=== PATIENT | male | born 1980 | race Caucasian/White ===

== ENCOUNTER 2023-02-11 16:09 | Inpatient (IN) ==
--- NOTE | 2023-02-11 16:23 | Emergency Department Note ---
Impression & Plan Alcoholic intoxication, Acute hypokalemia ED Provider Note HISTORY OF PRESENT ILLNESS: Patient is a 42-year-old male presenting with alcohol intoxication. Patient presented to [facility] rehab facility today for alcohol detox but his breathalyzer test result 0.4. Patient reports that he drinks 1/5 of vodka a day for the last 2 months. He states that he drank around 6 AM and finished drinking about 1500. He has no complaints on arrival to the emergency department. He would like to sober up and present to rehab. Denies any history of withdrawal seizures. ROS: as above PHYSICAL EXAM: Constitutional: Patient appears in no acute distress. HENT: Head: Normocephalic and atraumatic. Eyes: EOMI, PERRL Mouth/Throat: Mucous membranes moist. Neck: Trachea midline. Neck supple. Cardiovascular: RRR, No murmurs, rubs or gallops. Intact distal pulses. Pulmonary/Chest: No respiratory distress. Breath sounds clear and equal bilaterally. No wheezes or rales. Abdominal: BS +. Abdomen soft, no tenderness, rebound or guarding. Musculoskeletal: No edema, tenderness or deformity noted. Skin: Warm and dry. No rash, erythema, pallor or cyanosis Neurological: Alert. CN II-XII grossly intact, moving all extremities equally and fully. MDM: - Vitals signs st - History obtained via patient. Patient presents with alcohol intoxication. Patient presented to an outpatient rehab facility earlier today. However, he was found to be too drunk to safely be admitted to the rehab. He was sent to the ER for further evaluation. Patient reports he drinks 1/5 of vodka a day. Denies any history of withdrawal seizures. - Chronic conditions affecting care: chronic alcoholism - Differential diagnoses include, but are not limited to: electrolyte abnormality; alcohol intoxication; drug intoxication - Order placed for continuous cardiac monitoring. At this time, monitor showed rate of 70 bpm with normal sinus rhythm, per my interpretation. - External medical records reviewed. - Laboratory workup interpreted by myself showed slight leukopenia (WBC 4.54); hypokalemia (K 3.1); slightly elevated anion gap (12); elevated AST (45); elevated ethanol level (482.9) - Patient given IV banana bag in ER. - Given patient's significant intoxication, will admit to hospitalist service fo r detox. - Discussion was had with licensed social worker about patient's case and need for admission - Hospitalist consulted for admission. - Patient admitted to [facility] for further evaluation and management. ASSESSMENT AND PLAN: Diagnosis: alcohol intoxication; hypokalemia Plan: admit Past Med/Surg History Social History Feels Safe at Home: Yes Results & Data (ED) Vital Signs Vital Signs - 24 hr 02/11/23 16:10 02/11/23 16:16 02/11/23 16:16 Temperature 36.6 C Temperature Source Oral Pulse Rate 84 Pulse Rate [Right Apical] 88 Pulse Rate from SpO2 Sensor Respiratory Rate 18 22 Respiratory Effort / Characteristics Non-Labored Spontaneous Non-Labored Spontaneous Respiratory Depth Normal Normal Respiratory Pattern Regular Regular Blood Pressure 127/84 Blood Pressure [Right Arm] 127/84 Blood Pressure Mean 98 Blood Pressure Mean [Right Arm] 98 Pulse Oximetry 93 93 93 Oxygen Delivery Method Room Air Room Air Room Air Sepsis Recent Fever Within 48 Hours No Sepsis New/Unexplained Change in Mental Status N/A Sepsis Action Taken by Nursing No Action Required 02/11/23 16:25 02/11/23 17:13 02/11/23 17:42 Temperature Temperature Source Pulse Rate 81 86 Pulse Rate [Right Apical] Pulse Rate from SpO2 Sensor Respiratory Rate 16 Respiratory Effort / Characteristics Respiratory Depth Respiratory Pattern Blood Pressure 112/75 Blood Pressure [Right Arm] Blood Pressure Mean 84 Blood Pressure Mean [Right Arm] Pulse Oximetry 93 96 Oxygen Delivery Method Room Air Room Air Sepsis Recent Fever Within 48 Hours Sepsis New/Unexplained Change in Mental Status Sepsis Action Taken by Nursing 02/11/23 18:00 Temperature Temperature Source Pulse Rate 69 Pulse Rate [Right Apical] Pulse Rate from SpO2 Sensor 69 Respiratory Rate 16 Respiratory Effort / Characteristics Respiratory Depth Respiratory Pattern Blood Pressure 95/64 L Blood Pressure [Right Arm] Blood Pressure Mean 74 Blood Pressure Mean [Right Arm] Pulse Oximetry 94 Oxygen Delivery Method Room Air Sepsis Recent Fever Within 48 Hours Sepsis New/Unexplained Change in Mental Status Sepsis Action Taken by Nursing Laboratory Data 02/11/23 16:23 02/11/23 16:23 Lab Results 02/11/23 02/11/23 02/11/23 Range/Units 16:23 16:23 16:23 WBC 4.54 L (4.8-10.8) K/ul RBC 4.29 L (4.70-6.10) M/uL Hgb 13.9 L (14.0-18.0) g/dl Hct 39.6 L (42.0-52.0) % MCV 92.3 (80.0-100.0) fL MCH 32.4 (25.0-34.0) pg MCHC 35.1 (32.0-36.0) g/dL RDW Std Deviation 47.0 H (36.4-46.3) fL RDW Coeff of Lorenzo 13.9 (11.5-14.5) % Plt Count 153 (130-400) K/uL MPV 9.7 (9.4-12.4) fL Immature Gran % (Auto) 0.2 % Neut % (Auto) 44.3 % Lymph % (Auto) 43.4 % [place] % (Auto) 8.8 % Eos % (Auto) 1.3 % Baso % (Auto) 2.0 % Neut # (Auto) 2.01 (1.40-6.50) K/uL Lymph # (Auto) 1.97 (1.2-3.4) K/uL [place] # (Auto) 0.40 (0.11-0.59) K/uL Eos # (Auto) 0.06 (0-0.50) K/uL Baso # (Auto) 0.09 (0-0.2) K/uL Immature Gran # (Auto) 0.01 (0.01-0.20) K/uL Sodium 145 (136-145) mmol/L Potassium 3.1 L (3.5-5.1) mmol/L Chloride 106 (98-107) mmol/L Carbon Dioxide 27 (21-32) mmol/L Anion Gap 12 H (3-11) BUN 6 (6-23) mg/dl Creatinine 0.66 (0.6-1.4) mg/dl Est Cr Clr Drug Dosing 161.7 ml/min Est GFR ( Amer) 139.2 ml/min Est GFR (Non-Af Amer) 120.1 ml/min BUN/Creatinine Ratio 9.1 L (10-20) Glucose 103 H (70-99(Fasting)) mg/dl POC Glucose (70-99) mg/dl Calcium 8.8 (8.6-10.3) mg/dl Total Bilirubin 0.4 (0.2-1.0) mg/dl AST 45 H (13-39) U/L ALT 20 (7-52) U/L Alkaline Phosphatase 85 (34-104) U/L Total Protein 7.9 (6.0-8.3) gm/dl Albumin 4.4 (3.4-5.0) gm/dl Globulin 3.5 (2.5-4.0) gm/dl Albumin/Globulin Ratio 1.3 (0.9-2) Ethyl Alcohol mg/dL 482.9 H (<10.0) mg/dl 02/11/23 Range/Units 16:30 WBC (4.8-10.8) K/ul RBC (4.70-6.10) M/uL Hgb (14.0-18.0) g/dl Hct (42.0-52.0) % MCV (80.0-100.0) fL MCH (25.0-34.0) pg MCHC (32.0-36.0) g/dL RDW Std Deviation (36.4-46.3) fL RDW Coeff of Lorenzo (11.5-14.5) % Plt Count (130-400) K/uL MPV (9.4-12.4) fL Immature Gran % (Auto) % Neut % (Auto) % Lymph % (Auto) % [place] % (Auto) % Eos % (Auto) % Baso % (Auto) % Neut # (Auto) (1.40-6.50) K/uL Lymph # (Auto) (1.2-3.4) K/uL [place] # (Auto) (0.11-0.59) K/uL Eos # (Auto) (0-0.50) K/uL Baso # (Auto) (0-0.2) K/uL Immature Gran # (Auto) (0.01-0.20) K/uL Sodium (136-145) mmol/L Potassium (3.5-5.1) mmol/L Chloride (98-107) mmol/L Carbon Dioxide (21-32) mmol/L Anion Gap (3-11) BUN (6-23) mg/dl Creatinine (0.6-1.4) mg/dl Est Cr Clr Drug Dosing ml/min Est GFR ( Amer) ml/min Est GFR (Non-Af Amer) ml/min BUN/Creatinine Ratio (10-20) Glucose (70-99(Fasting)) mg/dl POC Glucose 115 H (70-99) mg/dl Calcium (8.6-10.3) mg/dl Total Bilirubin (0.2-1.0) mg/dl AST (13-39) U/L ALT (7-52) U/L Alkaline Phosphatase (34-104) U/L Total Protein (6.0-8.3) gm/dl Albumin (3.4-5.0) gm/dl Globulin (2.5-4.0) gm/dl Albumin/Globulin Ratio (0.9-2) Ethyl Alcohol mg/dL (<10.0) mg/dl Discharge Plan Visit Data Chief Complaint: Alcohol Intoxication ED Provider: Kathy Sifuentes Discharge Problem: Alcoholic intoxication, Acute hypokalemia Forms Stand Alone Forms: [facility] Referrals Referrals: PCP,NO [Primary Care Provider] -
[2023-02-11 16:54] LABS: Basophils # (auto) 0.09 K/uL (0-0.2); Eosinophils # (auto) 0.06 K/uL (0-0.50); Eosinophils % (auto) 1.3 %; Hematocrit (blood only) 39.6 % (42.0-52.0); Hemoglobin 13.9 g/dl (14.0-18.0); Immature Granulocytes # (auto) 0.01 K/uL (0.01-0.20); Immature Granulocytes % (auto) 0.2 %; Lymphocytes # (auto) 1.97 K/uL (1.2-3.4); Lymphocytes % (auto) 43.4 %; Mean Corpuscular Hemoglobin 32.4 pg (25.0-34.0); Mean Corpuscular Hgb Conc 35.1 g/dL (32.0-36.0); Mean Corpuscular Volume 92.3 fL (80.0-100.0); Mean Platelet Volume 9.7 fL (9.4-12.4); Monocytes % (auto) 8.8 %; Neutrophils # (auto) 2.01 K/uL (1.40-6.50); Neutrophils % (auto) 44.3 %; Platelet Count 153 K/uL (130-400); RDW Coefficient of Variation 13.9 % (11.5-14.5); Red Blood Count 4.29 M/uL (4.70-6.10); White Blood Count 4.54 K/ul (4.8-10.8)
[2023-02-11 17:12] LABS: Albumin Globulin Ratio 1.3 (0.9-2); Albumin Level 4.4 gm/dl (3.4-5.0); BUN Creatinine Ratio 9.1 (10-20); Bilirubin,Total 0.4 mg/dl (0.2-1.0); Calcium 8.8 mg/dl (8.6-10.3); Creatinine Clr Calc Pharmacy 161.7 ml/min; Est GFR (African American) 139.2 ml/min; Est GFR (Non-African American) 120.1 ml/min; Globulin 3.5 gm/dl (2.5-4.0); Potassium 3.1 mmol/L (3.5-5.1); Total Protein 7.9 gm/dl (6.0-8.3)
[2023-02-11] MEDS ORDERED: THIAMINE HCL 100 MG, FOLIC ACID 1 MG in SODIUM CHLORIDE 0.9% 1000ML 1,000 ML IV STA (18:21)
[2023-02-11] MEDS ORDERED: CEROVITE ADV FORMULA TAB PO STA (18:21)
[2023-02-11] MEDS ORDERED: GABAPENTIN 1200MG ALCOHOL WITHDRAWAL LOAD PO STA (18:48)
[2023-02-11] MEDS ORDERED: LORazepam 2 MG/1 ML VIAL IV PRN ×3 (18:48)
[2023-02-11] MEDS ORDERED: Ativan IV Alcohol Withdrawal--Active Protocol IV PRN (18:48)
[2023-02-11] MEDS ORDERED: LORazepam 1 MG TAB PO PRN ×3 (18:48)
[2023-02-11] MEDS ORDERED: Ativan PO Alcohol Withdrawal--Active Protocol PO PRN (18:48)
[2023-02-11] MEDS ORDERED: FOLIC ACID 1 MG TAB PO SCH (19:00)
[2023-02-11 19:14] LABS: Magnesium 1.8 mg/dl (1.7-2.4)
--- NOTE | 2023-02-11 19:31 | History & Physical Report ---
Date of Service February 11, 2023 Assessment & Plan (1) Alcohol use disorder: Plan: drinking since age 18, recently 1/5 vodka per day, interested in detox and rehab EtOh level 483 associated with mild hypokalemia and Mg low normal, mildly elevated AST ordered gabapentin taper monitor with RAMIN, prn ativan per protocol continue Thiamine and Folic acid supplements CM consulted for rehab placement Present on Admission?: Yes (2) Alcoholic intoxication: Plan: as above under alcohol use disorder Present on Admission?: Yes (3) Acute hypokalemia: Plan: mild K 3.1 replete and monitor may drop further with IVF/hemodilution, replete as needed Present on Admission?: Yes History of Present Illness Chief Complaint: Wants to detox and go to alcohol rehab Primary Care Provider: NO PCP Mr. Jimenez is a pleasant 42 year old male with pmhx of etoh use disorder currently drinking 1/5 of vodka daily. He presents seeking assistance with detox and rehab. Mr. Jimenez states he has been in his usual state of health lately. He has gotten into some legal trouble, he is facing charges of theft connected to his alcohol addiction. I did not inquire as to the details. This was the last straw for his who will divorce him if he does not get sober. He has been to rehab twice before and sincerely does not know why he relapsed. His father drank and smoked. He quit both when the patient was [age] years old. Other than that Mr. Jimenez is unaware of any substance use in the family. He denies any recent or current confusion, focal weakness, numbness, tingling, incontinence, dizziness, lightheadedness, f/c/n/v, cough, congestion, sore throat, CP/pressure, palpitations, sob, dyspnea, abdominal pain, and diarrhea. ED course: VS notable for soft BP 95/64, remaining VSS. b/w notable for etoh of 483, K 3.1, AST 45. Mg low normal (1.8). Remaining cbc and cmp with only insignificant abnormalities. Pt was given IVF, MVI, folate, thiamine, and admitted to hospitalist medicine. Allergies Allergy/AdvReac Type Severity Reaction Status Date / Time No Known Allergies Allergy Unverified 02/11/23 18:55 Home Medications Medication Instructions Recorded Confirmed Type escitalopram oxalate 10 mg tablet 10 mg PO DAILY 02/11/23 02/11/23 History (Lexapro) ferrous sulfate 325 mg (65 mg 325 mg PO .DAILY AT 1700 02/11/23 02/11/23 History iron) tablet (iron) meloxicam 7.5 mg tablet 7.5 mg PO DAILY 02/11/23 02/11/23 History multivitamin-ferrous 1 tab PO DAILY 02/11/23 02/11/23 History fumarate-folic acid 18 mg-400 mcg tablet (Centrum) naltrexone 50 mg tablet 50 mg PO DAILY 02/11/23 02/11/23 History Past Med/Surg History Medical History (Updated 02/11/23 @ 19:43 by Abril Peterson MD) Alcohol use disorder Family History (Updated 02/11/23 @ 19:37 by Abril Peterson MD) Father , former smoker and drinker COPD (chronic obstructive pulmonary disease) Diabetes Mother Dementia Pt is estranged from his mother and does not know any further medical hx. He is an only child and does not have any children. Social History (Updated 02/11/23 @ 19:38 by Abril Peterson MD) Smoking Status: Never smoker Hx Alcohol Use: Yes Alcohol type: hard liquor Alcohol type Comment: 1/5 vodka daily Hx Substance Use: No Feels Safe at Home: Yes Review of Systems Review of Systems: All systems reviewed & are unremarkable except as noted in HPI & below Physical Exam Physical Exam: General: NAD, well nourished, well developed, non-toxic appearing Head: NC AT Eyes: PERRL, EOMI, anicteric sclera, no conjunctival injection Nose: normal, nares patent Mouth: MMM Neck: supple, trachea midline CV: RRR S1 S2 Pulm: CTA b/l Abd/GI: + BS, soft, NT, ND, no guarding : no perez Ext: no pretibial edema, peripheral pulses intact MSK: normal bulk and tone Neuro: moving all 4 extremities symmetrically, alert, oriented x 3, no focal deficits Psych: pleasant mood and affect Skin: visible skin is warm, dry, and without rash. Pt not fully undressed for exam. Results & Data Results & Data Vital Signs (Past 12 Hours) Vital Signs Temp Pulse Pulse Resp BP BP Pulse Ox 02/11/23 18:00 69 16 95/64 L 94 02/11/23 17:42 86 16 112/75 96 02/11/23 17:13 81 02/11/23 16:25 93 02/11/23 16:16 88 22 127/84 93 02/11/23 16:16 93 02/11/23 16:10 36.6 C 84 18 127/84 93 O2 Del Method 02/11/23 18:00 Room Air 02/11/23 17:42 Room Air 02/11/23 17:13 02/11/23 16:25 Room Air 02/11/23 16:16 Room Air 02/11/23 16:16 Room Air 02/11/23 16:10 Room Air Laboratory Results Short CBC 02/11/23 Range/Units 16:23 WBC 4.54 L (4.8-10.8) K/ul Hgb 13.9 L (14.0-18.0) g/dl Hct 39.6 L (42.0-52.0) % Plt Count 153 (130-400) K/uL BMP 02/11/23 16:23 Sodium 145 Potassium 3.1 L Chloride 106 Carbon Dioxide 27 BUN 6 Creatinine 0.66 Glucose 103 H Calcium 8.8 Liver Function 02/11/23 Range/Units 16:23 Total Bilirubin 0.4 (0.2-1.0) mg/dl AST 45 H (13-39) U/L ALT 20 (7-52) U/L Alkaline Phosphatase 85 (34-104) U/L Albumin 4.4 (3.4-5.0) gm/dl Diagnostic Findings no imaging indicated Code Status & VTE Plan Code Status Full VTE Prophylaxis Plan VTE Prophylaxis will be ordered: Yes
[2023-02-11] MEDS ORDERED: POTASSIUM CHLORIDE CRTAB 20 MEQ TABCR PO ONE (19:46)
[2023-02-11] MEDS ORDERED: GABAPENTIN 600 MG TAB PO ONE (20:30)
[2023-02-11] MEDS: MAGNESIUM OXIDE 400 MG TAB PO SCH (20:34)
[2023-02-11] MEDS: SODIUM CHLORIDE 0.9% 1000ML 1,000 ML IV SCH (21:05)
[2023-02-11] MEDS: THIAMINE HCL 100 MG TAB PO SCH (23:23)
[2023-02-12 06:46] LABS: Basophils # (auto) 0.06 K/uL (0-0.2); Basophils % (auto) 1.4 %; Eosinophils # (auto) 0.06 K/uL (0-0.50); Eosinophils % (auto) 1.4 %; Hemoglobin 12.6 g/dl (14.0-18.0); Immature Granulocytes # (auto) 0.01 K/uL (0.01-0.20); Immature Granulocytes % (auto) 0.2 %; Lymphocytes # (auto) 1.25 K/uL (1.2-3.4); Lymphocytes % (auto) 28.9 %; Mean Corpuscular Hemoglobin 32.1 pg (25.0-34.0); Mean Corpuscular Volume 91.8 fL (80.0-100.0); Mean Platelet Volume 9.7 fL (9.4-12.4); Monocytes % (auto) 11.6 %; Neutrophils # (auto) 2.44 K/uL (1.40-6.50); Neutrophils % (auto) 56.5 %; Platelet Count 141 K/uL (130-400); RDW Coefficient of Variation 14.1 % (11.5-14.5); RDW Standard Deviation 47.4 fL (36.4-46.3); Red Blood Count 3.92 M/uL (4.70-6.10); White Blood Count 4.32 K/ul (4.8-10.8)
[2023-02-12] MEDS: SODIUM CHLORIDE 0.9% 1000ML 1,000 ML IV SCH (06:49)
[2023-02-12 07:06] LABS: Albumin Globulin Ratio 1.4 (0.9-2); Albumin Level 4.2 gm/dl (3.4-5.0); BUN Creatinine Ratio 9.1 (10-20); Bilirubin Direct 0.1 mg/dl (0-0.2); Bilirubin,Total 0.6 mg/dl (0.2-1.0); Calcium 8.1 mg/dl (8.6-10.3); Creatinine Clr Calc Pharmacy 138.6 ml/min; Est GFR (African American) 130.6 ml/min; Est GFR (Non-African American) 112.7 ml/min; Globulin 2.9 gm/dl (2.5-4.0); Magnesium 1.4 mg/dl (1.7-2.4); Potassium 3.8 mmol/L (3.5-5.1); Total Protein 7.1 gm/dl (6.0-8.3)
[2023-02-12] MEDS ORDERED: DEXTROSE 5% 1,000 ML IV SCH (07:30)
[2023-02-12] MEDS: GABAPENTIN 600 MG TAB PO SCH ×3 (07:49→20:31)
[2023-02-12] MEDS: ENOXAPARIN INJ 40 MG/0.4 ML SYR SQ SCH (08:00)
[2023-02-12] MEDS: MAGNESIUM OXIDE 400 MG TAB PO SCH (08:01)
[2023-02-12] MEDS: ESCITALOPRAM OXALATE 10 MG TAB PO SCH (08:01)
[2023-02-12] MEDS: THIAMINE HCL 100 MG TAB PO SCH (08:01)
[2023-02-12] MEDS: FOLIC ACID 1 MG TAB PO SCH (08:01)
--- NOTE | 2023-02-12 11:29 | Hospitalist Progress Note ---
Date of Service February 12, 2023 Assessment & Plan (1) Alcohol use disorder: Plan: drinking since age 18, recently 1/5 vodka per day, interested in detox and rehab EtOh level 483 associated with mild hypokalemia and Mg low normal, mildly elevated AST On gabapentin taper monitor with RAMIN, prn ativan per protocol continue Thiamine and Folic acid supplements CM consulted for rehab placement (2) Alcoholic intoxication: Plan: as above under alcohol use disorder (3) Acute hypokalemia: Plan: 3.1 on admission; repleted. Repeat is 3.8. (4) Hypernatremia: Plan: Sodium of 146 today. Likely due to decreased water intake Encourage oral hydration Repeat BMP in the afternoon Plan Dispotransfer to detox facility after resolution of acute withdrawal Please note the above document was generated using voice recognition software. It may contain grammatical, syntax or spelling errors. Any formal questions or concerns about the content, text or information contained within the body of this dictation should be directly addressed to the provider for clarification Admission and Anticipated Discharge Date Admission Date: February 11, 2023 Subjective Patient seen and examined at bedside. He is lying comfortably on the bed; not in distress. No signs of alcohol withdrawal. Review of Systems Review of Systems: All systems reviewed & are unremarkable except as noted in Subjective Physical Exam Physical Exam: Constitutional: WD/WN, vitals as above, NAD, sitting up in bed, pleasant, conversing easily Respiratory: normal respiratory effort, lungs clear to auscultation, no wheeze, rales, rhonchi. Normal insp/exp effort, no accessory muscle use Cardiovascular: RRR, no murmur, no edema Vessels: no JVD or carotid bruit Chest: normal inspection of chest Abdomen: normal bowel sounds, soft, nontender, no hepatosplenomegaly Musculoskeletal: no cyanosis or clubbing, extremities motor strength 5/5 Skin: no rashes, warm and dry normal turgor Neurologic: PERRL, EOMI, accommodation nl, no face palsy, no dysarthria CN's II- XI intact bilaterally and moves all extremities Psychiatric: A+Ox3, euthymic affect Results & Data Results & Data Vital Signs (Past 12 Hours) Vital Signs Temp Pulse Pulse Resp BP Pulse Ox O2 Del Method 02/12/23 10:55 37.0 C 91 H 18 159/99 H 99 Room Air 02/12/23 07:43 91 H 02/12/23 07:30 37.2 C 94 H 18 123/77 94 Room Air 02/12/23 03:00 37.2 C 97 H 20 127/76 93 Room Air 02/12/23 00:49 74 Laboratory Results Laboratory Results WBC 4.32 K/ul (4.8-10.8) L 02/12/23 06:20 RBC 3.92 M/uL (4.70-6.10) L 02/12/23 06:20 Hgb 12.6 g/dl (14.0-18.0) L 02/12/23 06:20 Hct 36.0 % (42.0-52.0) L 02/12/23 06:20 MCV 91.8 fL (80.0-100.0) 02/12/23 06:20 MCH 32.1 pg (25.0-34.0) 02/12/23 06:20 MCHC 35.0 g/dL (32.0-36.0) 02/12/23 06:20 RDW Std Deviation 47.4 fL (36.4-46.3) H 02/12/23 06:20 RDW Coeff of Lorenzo 14.1 % (11.5-14.5) 02/12/23 06:20 Plt Count 141 K/uL (130-400) 02/12/23 06:20 MPV 9.7 fL (9.4-12.4) 02/12/23 06:20 Immature Gran % (Auto) 0.2 % 02/12/23 06:20 Neut % (Auto) 56.5 % 02/12/23 06:20 Lymph % (Auto) 28.9 % 02/12/23 06:20 [place] % (Auto) 11.6 % 02/12/23 06:20 Eos % (Auto) 1.4 % 02/12/23 06:20 Baso % (Auto) 1.4 % 02/12/23 06:20 Neut # (Auto) 2.44 K/uL (1.40-6.50) 02/12/23 06:20 Lymph # (Auto) 1.25 K/uL (1.2-3.4) 02/12/23 06:20 [place] # (Auto) 0.50 K/uL (0.11-0.59) 02/12/23 06:20 Eos # (Auto) 0.06 K/uL (0-0.50) 02/12/23 06:20 Baso # (Auto) 0.06 K/uL (0-0.2) 02/12/23 06:20 Immature Gran # (Auto) 0.01 K/uL (0.01-0.20) 02/12/23 06:20 Sodium 146 mmol/L (136-145) H 02/12/23 06:20 Potassium 3.8 mmol/L (3.5-5.1) D 02/12/23 06:20 Chloride 110 mmol/L (98-107) H 02/12/23 06:20 Carbon Dioxide 25 mmol/L (21-32) 02/12/23 06:20 Anion Gap 11 (3-11) 02/12/23 06:20 BUN 7 mg/dl (6-23) 02/12/23 06:20 Creatinine 0.77 mg/dl (0.6-1.4) 02/12/23 06:20 Est Cr Clr Drug Dosing 138.6 ml/min 02/12/23 06:20 Est GFR ( Amer) 130.6 ml/min 02/12/23 06:20 Est GFR (Non-Af Amer) 112.7 ml/min 02/12/23 06:20 BUN/Creatinine Ratio 9.1 (10-20) L 02/12/23 06:20 Glucose 73 mg/dl (70-99(Fasting)) 02/12/23 06:20 POC Glucose 115 mg/dl (70-99) H 02/11/23 16:30 Calcium 8.1 mg/dl (8.6-10.3) L 02/12/23 06:20 Magnesium 1.4 mg/dl (1.7-2.4) L 02/12/23 06:20 Total Bilirubin 0.6 mg/dl (0.2-1.0) 02/12/23 06:20 Direct Bilirubin 0.1 mg/dl (0-0.2) 02/12/23 06:20 AST 45 U/L (13-39) H 02/12/23 06:20 ALT 19 U/L (7-52) 02/12/23 06:20 Alkaline Phosphatase 75 U/L (34-104) 02/12/23 06:20 Total Protein 7.1 gm/dl (6.0-8.3) 02/12/23 06:20 Albumin 4.2 gm/dl (3.4-5.0) 02/12/23 06:20 Globulin 2.9 gm/dl (2.5-4.0) 02/12/23 06:20 Albumin/Globulin Ratio 1.4 (0.9-2) 02/12/23 06:20 Ethyl Alcohol mg/dL 482.9 mg/dl (<10.0) H 02/11/23 16:23 SARS-CoV-2, RNA, NAAT NEGATIVE (NEGATIVE) 02/11/23 18:47
[2023-02-12] MEDS: diazePAM 5 MG TABLET PO SCH ×2 (13:39→20:33)
[2023-02-12 15:52] LABS: BUN Creatinine Ratio 10.2 (10-20); Calcium 8.6 mg/dl (8.6-10.3); Creatinine Clr Calc Pharmacy 180.8 ml/min; Est GFR (African American) 145.8 ml/min; Est GFR (Non-African American) 125.8 ml/min; Potassium 3.8 mmol/L (3.5-5.1)
[2023-02-12] MEDS: FERROUS SULFATE 325 MG TAB PO SCH (16:23)
[2023-02-13] MEDS: GABAPENTIN 600 MG TAB PO SCH ×3 (03:24→23:08)
[2023-02-13] MEDS ORDERED: IBUPROFEN 200 MG TAB PO STA (03:27)
[2023-02-13 06:41] LABS: Basophils # (auto) 0.07 K/uL (0-0.2); Basophils % (auto) 1.3 %; Eosinophils # (auto) 0.06 K/uL (0-0.50); Eosinophils % (auto) 1.1 %; Hematocrit (blood only) 36.7 % (42.0-52.0); Hemoglobin 12.8 g/dl (14.0-18.0); Immature Granulocytes # (auto) 0.01 K/uL (0.01-0.20); Immature Granulocytes % (auto) 0.2 %; Lymphocytes # (auto) 0.96 K/uL (1.2-3.4); Lymphocytes % (auto) 17.6 %; Mean Corpuscular Hemoglobin 32.6 pg (25.0-34.0); Mean Corpuscular Hgb Conc 34.9 g/dL (32.0-36.0); Mean Corpuscular Volume 93.4 fL (80.0-100.0); Monocytes # (auto) 0.89 K/uL (0.11-0.59); Monocytes % (auto) 16.4 %; Neutrophils # (auto) 3.45 K/uL (1.40-6.50); Neutrophils % (auto) 63.4 %; Platelet Count 139 K/uL (130-400); RDW Coefficient of Variation 13.5 % (11.5-14.5); RDW Standard Deviation 46.1 fL (36.4-46.3); Red Blood Count 3.93 M/uL (4.70-6.10); White Blood Count 5.44 K/ul (4.8-10.8)
[2023-02-13 06:48] LABS: BUN Creatinine Ratio 8.5 (10-20); Calcium 9.1 mg/dl (8.6-10.3); Creatinine Clr Calc Pharmacy 150.3 ml/min; Est GFR (African American) 135.1 ml/min; Est GFR (Non-African American) 116.5 ml/min; Potassium 4.1 mmol/L (3.5-5.1)
[2023-02-13] MEDS: MAGNESIUM OXIDE 400 MG TAB PO SCH (08:08)
[2023-02-13] MEDS: THIAMINE HCL 100 MG TAB PO SCH (08:09)
[2023-02-13] MEDS: ESCITALOPRAM OXALATE 10 MG TAB PO SCH (08:09)
[2023-02-13] MEDS: ENOXAPARIN INJ 40 MG/0.4 ML SYR SQ SCH (08:09)
[2023-02-13] MEDS: FOLIC ACID 1 MG TAB PO SCH (08:09)
[2023-02-13] MEDS: diazePAM 5 MG TABLET PO SCH ×3 (08:13→20:02)
[2023-02-13] MEDS: FERROUS SULFATE 325 MG TAB PO SCH (17:08)
--- NOTE | 2023-02-13 17:47 | Hospitalist Progress Note ---
Date of Service February 13, 2023 Assessment & Plan (1) Alcohol use disorder: Plan: Reports drinking since age 18, recently 1/5 vodka per day, interested in detox and rehab EtOh level 483 Continue gabapentin protocol continue thiamine, folate acid Monitor for withdrawal Drug rehab as able Avoid hepatotoxic agents as able Hypokalemia Hypomagnesemia Hypernatremia Replete electrolytes as needed Sodium levels improved with IV fluids Monitor (2) Alcoholic intoxication: Plan: Counseled to quit drinking (3) Acute hypokalemia: Plan: as above (4) Hypernatremia: Plan: as above Plan DVT Px: Lovenox SQ Code Status Full Code Admission and Anticipated Discharge Date Admission Date: February 11, 2023 Subjective Patient is seen and examined at bedside States feeling much better today Offers no new complaints Denies any withdrawal symptoms Eager to get discharged Denies any chest pain, shortness of breath, dizziness, nausea, abdominal pain Review of Systems Review of Systems: All systems reviewed & are unremarkable except as noted in Subjective Physical Exam Physical Exam: Physical Exam: Vitals signs as noted above General Appearance:Moderately built and nourished, no apparent distress Head: normocephalic, Atraumatic Eyes: normal inspection, EOMI Neck: supple, Trachea midline Respiratory/Chest: Normal breath sounds, CTA, No accessory muscle use Cardiovascular: S1, S2, No murmur Abdomen/GI:Soft, Non tender, Bowel sounds present Extremities/Musculoskeletal:normal inspection, no edema Neurologic/Psych:AAOX3, grossly no focal neurological deficits Skin: normal color, warm Results & Data Results & Data Vital Signs (Past 12 Hours) Vital Signs Temp Pulse Pulse Resp BP BP Pulse Ox 02/13/23 15:51 36.9 C 82 19 131/86 98 02/13/23 15:11 66 02/13/23 11:13 36.9 C 76 19 138/86 99 02/13/23 08:00 36.9 C 68 19 152/92 H 99 02/13/23 07:22 54 L O2 Del Method 02/13/23 15:51 Room Air 02/13/23 15:11 02/13/23 11:13 Room Air 02/13/23 08:00 Room Air 02/13/23 07:22 Laboratory Results Short CBC 02/13/23 Range/Units 05:45 WBC 5.44 (4.8-10.8) K/ul Hgb 12.8 L (14.0-18.0) g/dl Hct 36.7 L (42.0-52.0) % Plt Count 139 (130-400) K/uL [facility] 02/13/23 05:45 Sodium 139 Potassium 4.1 Chloride 98 Carbon Dioxide 32 BUN 6 Creatinine 0.71 Glucose 92 Calcium 9.1
[2023-02-13] MEDS ORDERED: ACETAMINOPHEN 325 MG TAB PO PRN (21:15)
[2023-02-14] MEDS: ENOXAPARIN INJ 40 MG/0.4 ML SYR SQ SCH (08:40)
[2023-02-14] MEDS: FOLIC ACID 1 MG TAB PO SCH (08:41)
[2023-02-14] MEDS: ESCITALOPRAM OXALATE 10 MG TAB PO SCH (08:41)
[2023-02-14] MEDS: THIAMINE HCL 100 MG TAB PO SCH (08:41)
[2023-02-14] MEDS: diazePAM 5 MG TABLET PO SCH ×2 (08:43→13:57)
[2023-02-14] MEDS ORDERED: cloNIDine HCL 0.1 MG TAB PO PRN (09:04)
[2023-02-14 09:18] LABS: BUN Creatinine Ratio 8.7 (10-20); Creatinine Clr Calc Pharmacy 154.6 ml/min; Est GFR (African American) 136.7 ml/min; Est GFR (Non-African American) 117.9 ml/min; Magnesium 1.8 mg/dl (1.7-2.4); Potassium 3.9 mmol/L (3.5-5.1)
[2023-02-14] MEDS: GABAPENTIN 600 MG TAB PO SCH (11:52)
--- NOTE | 2023-02-14 12:45 | Hospitalist Progress Note ---
Date of Service February 14, 2023 Assessment & Plan (1) Alcohol use disorder: Plan: Reports drinking since age 18, recently 1/5 vodka per day, interested in detox and rehab EtOh level 483 Continue gabapentin protocol continue thiamine, folate acid Monitor for withdrawal Avoid hepatotoxic agents as able Plan to discharge to drug rehab today Hypokalemia Hypomagnesemia Hypernatremia Replete electrolytes as needed Sodium levels improved with IV fluids Monitor Hypertension Secondary to alcohol withdrawal Clonidine as needed Monitor BP (2) Alcoholic intoxication: Plan: Counseled to quit drinking (3) Acute hypokalemia: Plan: as above (4) Hypernatremia: Plan: as above Plan DVT Px: Lovenox SQ Code Status Full Code Disposition rehab facility Admission and Anticipated Discharge Date Admission Date: February 11, 2023 Subjective Patient is seen and examined at bedside No new complaints Blood pressure elevated today Negative for discharge Denies any withdrawal symptoms Also denies any chest pain, shortness of breath, dizziness, nausea, abdominal pain Plan to discharge to drug rehab Review of Systems Review of Systems: All systems reviewed & are unremarkable except as noted in Subjective Physical Exam Physical Exam: Physical Exam: Vitals signs as noted above General Appearance:Moderately built and nourished, no apparent distress Head: normocephalic, Atraumatic Eyes: normal inspection, EOMI Neck: supple, Trachea midline Respiratory/Chest: Normal breath sounds, CTA, No accessory muscle use Cardiovascular: S1, S2, No murmur Abdomen/GI:Soft, Non tender, Bowel sounds present Extremities/Musculoskeletal:normal inspection, no edema Neurologic/Psych:AAOX3, grossly no focal neurological deficits Skin: normal color, warm Results & Data Results & Data Vital Signs (Past 12 Hours) Vital Signs Temp Pulse Resp BP BP Pulse Ox O2 Del Method 02/14/23 11:29 37.1 C 85 20 143/99 H 99 Room Air 02/14/23 07:33 36.6 C 91 H 18 154/102 H 100 Room Air 02/14/23 03:21 36.5 C 70 18 145/92 H 98 Room Air Laboratory Results [facility] 02/14/23 08:19 Sodium 137 Potassium 3.9 Chloride 100 Carbon Dioxide 29 BUN 6 Creatinine 0.69 Glucose 113 H Calcium 10.0
--- NOTE | 2023-02-14 12:52 | Discharge Summary ---
Date of Service February 14, 2023 Admission HPI Per Admitting Provider Mr. Jimenez is a pleasant 42 year old male with pmhx of etoh use disorder currently drinking 1/5 of vodka daily. He presents seeking assistance with detox and rehab. Mr. Jimenez states he has been in his usual state of health lately. He has gotten into some legal trouble, he is facing charges of theft connected to his alcohol addiction. I did not inquire as to the details. This was the last straw for his who will divorce him if he does not get sober. He has been to rehab twice before and sincerely does not know why he relapsed. His father drank and smoked. He quit both when the patient was [age] years old. Other than that Mr. Jimenez is unaware of any substance use in the family. He denies any recent or current confusion, focal weakness, numbness, tingling, incontinence, dizziness, lightheadedness, f/c/n/v, cough, congestion, sore throat, CP/pressure, palpitations, sob, dyspnea, abdominal pain, and diarrhea. ED course: VS notable for soft BP 95/64, remaining VSS. b/w notable for etoh of 483, K 3.1, AST 45. Mg low normal (1.8). Remaining cbc and cmp with only insignificant abnormalities. Pt was given IVF, MVI, folate, thiamine, and admitted to hospitalist medicine. Admission Exam Per Admitting Provider General:NAD, well nourished, well developed, non-toxic appearing Head:NC AT Eyes: PERRL, EOMI, anicteric sclera, no conjunctival injection Nose:normal, nares patent Mouth:MMM Neck:supple, trachea midline CV:RRR S1 S2 Pulm:CTA b/l Abd/GI:+ BS, soft, NT, ND, no guarding :no perez Ext:no pretibial edema, peripheral pulses intact MSK:normal bulk and tone Neuro:moving all 4 extremities symmetrically, alert, oriented x 3, no focal deficits Psych:pleasant mood and affect Skin:visible skin is warm, dry, and without rash. Pt not fully undressed for exam. Principal Diagnosis Alcohol use disorder Hypokalemia Hypomagnesemia Hypernatremia Discharge Data Allergies Allergy/AdvReac Type Severity Reaction Status Date / Time No Known Allergies Allergy Unverified 02/11/23 18:55 Consultations 02/11/23 18:51 ED Decision to Admit Stat Procedures Performed Laboratory Results WBC 5.44 K/ul (4.8-10.8) 02/13/23 05:45 RBC 3.93 M/uL (4.70-6.10) L 02/13/23 05:45 Hgb 12.8 g/dl (14.0-18.0) L 02/13/23 05:45 Hct 36.7 % (42.0-52.0) L 02/13/23 05:45 MCV 93.4 fL (80.0-100.0) 02/13/23 05:45 MCH 32.6 pg (25.0-34.0) 02/13/23 05:45 MCHC 34.9 g/dL (32.0-36.0) 02/13/23 05:45 RDW Std Deviation 46.1 fL (36.4-46.3) 02/13/23 05:45 RDW Coeff of Lorenzo 13.5 % (11.5-14.5) 02/13/23 05:45 Plt Count 139 K/uL (130-400) 02/13/23 05:45 MPV 10.0 fL (9.4-12.4) 02/13/23 05:45 Immature Gran % (Auto) 0.2 % 02/13/23 05:45 Neut % (Auto) 63.4 % 02/13/23 05:45 Lymph % (Auto) 17.6 % 02/13/23 05:45 [facility] % (Auto) 16.4 % 02/13/23 05:45 Eos % (Auto) 1.1 % 02/13/23 05:45 Baso % (Auto) 1.3 % 02/13/23 05:45 Neut # (Auto) 3.45 K/uL (1.40-6.50) 02/13/23 05:45 Lymph # (Auto) 0.96 K/uL (1.2-3.4) L 02/13/23 05:45 [facility] # (Auto) 0.89 K/uL (0.11-0.59) H 02/13/23 05:45 Eos # (Auto) 0.06 K/uL (0-0.50) 02/13/23 05:45 Baso # (Auto) 0.07 K/uL (0-0.2) 02/13/23 05:45 Immature Gran # (Auto) 0.01 K/uL (0.01-0.20) 02/13/23 05:45 Sodium 137 mmol/L (136-145) 02/14/23 08:19 Potassium 3.9 mmol/L (3.5-5.1) 02/14/23 08:19 Chloride 100 mmol/L (98-107) 02/14/23 08:19 Carbon Dioxide 29 mmol/L (21-32) 02/14/23 08:19 Anion Gap 8 (3-11) 02/14/23 08:19 BUN 6 mg/dl (6-23) 02/14/23 08:19 Creatinine 0.69 mg/dl (0.6-1.4) 02/14/23 08:19 Est Cr Clr Drug Dosing 154.6 ml/min 02/14/23 08:19 Est GFR ( Amer) 136.7 ml/min 02/14/23 08:19 Est GFR (Non-Af Amer) 117.9 ml/min 02/14/23 08:19 BUN/Creatinine Ratio 8.7 (10-20) L 02/14/23 08:19 Glucose 113 mg/dl (70-99(Fasting)) H 02/14/23 08:19 POC Glucose 115 mg/dl (70-99) H 02/11/23 16:30 Calcium 10.0 mg/dl (8.6-10.3) 02/14/23 08:19 Magnesium 1.8 mg/dl (1.7-2.4) 02/14/23 08:19 Total Bilirubin 0.6 mg/dl (0.2-1.0) 02/12/23 06:20 Direct Bilirubin 0.1 mg/dl (0-0.2) 02/12/23 06:20 AST 45 U/L (13-39) H 02/12/23 06:20 ALT 19 U/L (7-52) 02/12/23 06:20 Alkaline Phosphatase 75 U/L (34-104) 02/12/23 06:20 Total Protein 7.1 gm/dl (6.0-8.3) 02/12/23 06:20 Albumin 4.2 gm/dl (3.4-5.0) 02/12/23 06:20 Globulin 2.9 gm/dl (2.5-4.0) 02/12/23 06:20 Albumin/Globulin Ratio 1.4 (0.9-2) 02/12/23 06:20 Ethyl Alcohol mg/dL 482.9 mg/dl (<10.0) H 02/11/23 16:23 SARS-CoV-2, RNA, NAAT NEGATIVE (NEGATIVE) 02/11/23 18:47 Hospital Course (1) Alcohol use disorder: Reports drinking since age 18, recently 1/5 vodka per day, interested in detox and rehab EtOh level 483 Continue gabapentin protocol continue thiamine, folate acid Monitor for withdrawal Avoid hepatotoxic agents as able Plan to discharge to drug rehab today Hypokalemia Hypomagnesemia Hypernatremia Replete electrolytes as needed Sodium levels improved with IV fluids Monitor Hypertension Secondary to alcohol withdrawal Clonidine as needed Monitor BP (2) Alcoholic intoxication: Counseled to quit drinking (3) Acute hypokalemia: as above (4) Hypernatremia: as above Plan DVT Px: Lovenox SQ Code Status Full Code Disposition rehab facility Total Time Total Time Spent Total Time Spent (In Minutes): 55 minutes Discharge Plan Discharge Items Patient Disposition: Drug & Alcohol Rehab Reason For Visit: ALCOHOL INTOXICATION, REQUESTING REHAB Discharge Diagnosis: Alcohol use disorder Hypokalemia Hypomagnesemia Hypernatremia Activity: Per Instructions section Exercise/Sports: Wait until after follow-up appointment Non-emergency contact: Primary Care Provider Call non-emergency contact if: you have any medication questions, your symptoms worsen, your pain is concerning for you and you have a fever Follow-up/Referrals: PCP,NO [Primary Care Provider] - Diet: Heart Healthy Addtl Attending Provider Instructions: Follow-up with your primary care physician in 1 week upon discharge from rehab facility --- Quit drinking alcohol as advised Seek immediate medical attention if your symptoms reoccur or worsen Please take all medications as instructed on discharge list below. Please call if you have any questions or problems. You can reach a [facility] hospitalist on duty at [facility] 24 hours a day by calling Pending Studies at Discharge: No Stand-Alone Forms: My [facility] Skilled Items Patient informed of condition?: Yes DNR: No Discharge Level of Care: Acute rehab Communicable Disease: No Discharge Prognosis: Stable Lines: None Urinary Catheter: No Medications and DC Order Prescriptions: New clonidine HCl 0.1 mg Tablet 0.1 mg PO BID PRN (Reason: hypertensive emergency) Qty: 10 0RF Rx Instructions: Systolic blood pressure > 180 or diastolic blood pressure >100 gabapentin 600 mg Tablet 600 mg PO Q24H Qty: 2 0RF thiamine HCl (vitamin B1) 100 mg Tablet 100 mg PO QAM Qty: 30 0RF folic acid 1 mg Tablet 1 mg PO QAM Qty: 30 0RF diazepam 5 mg Tablet 5 mg PO BID Qty: 6 0RF Continued meloxicam 7.5 mg Tablet 7.5 mg PO DAILY escitalopram oxalate [Lexapro] 10 mg Tablet 10 mg PO DAILY naltrexone 50 mg Tablet 50 mg PO DAILY ferrous sulfate [iron] 325 mg (65 mg iron) Tablet 325 mg PO .DAILY AT 1700 Centrum 18-400 mg-mcg Tablet 1 tab PO DAILY Discharge Orders: Discharge Order (Routine); Ordered 02/14/23 Ordered By: Reg Mixon Admission Data Admit Date/Time: 02/11/23 18:56 Attending Provider: Reg Mixon Admit Provider: Abril Peterson Primary Care Provider: PCP,NO Other Providers: Abril Peterson
[2023-02-15] MEDS ORDERED: GABAPENTIN 600 MG TAB PO SCH (12:00)
== END 2023-02-14 14:40 | disposition alcohol treatment (31) | DRG 897 ==
LOC: ED 16:09 → INTOOBSV 18:56 → 2N 18:56 → SUATTDRO 18:56 → OBSVTOIN 18:56 → 2N 21:11